=== PATIENT | male | born 1955 | race Caucasian/White ===

== ENCOUNTER 2025-04-02 11:57 | Outpatient (AMB) | payer MEDICARE, SELFPAY ==
--- NOTE | 2025-04-02 12:12 | A.OFFVIS_ITS ---
Intake Visit Reasons: Dementia lewy body type HPI Comments Details: History of Present Illness The patient is a 69-year-old male presenting to establish care with a local neurologist for management of his known diagnoses. He was diagnosed with Lewy body dementia with Parkinsonism approximately 2.5 to 3 years ago at [facility]. His initial symptoms, beginning around late 2021, included falling, loss of balance, and visual hallucinations of people. He voluntarily stopped dr aguilar after an episode of disorientation on the road. His initial evaluation with a [facility] physician, who was retiring, suggested ataxia before he was referred to [facility], where his diagnostic workup included a spinal tap and MRIs. 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 He also has a history of anxiety and what is described as major depressive disorder, for which he takes multiple medications. His is the primary historian and expresses concern about establishing local neurological care, as his specialist, Dr. Salmon at [facility], is seen annually and is not readily available for acute issues. She reports a past negative reaction to scopolamine, which was prescribed by a primary care provider for vomiting and subsequently discontinued after she researched its contraindications with Lewy body dementia. The patient has experienced recurrent episodes of severe vomiting, has a known hiatal hernia, and is scheduled for an upper endoscopy. Review of Systems Narrative Review of Systems - Neurological: Reports history of visual hallucinations, balance impairment, and falls. - Reports intermittent, unpredictable tremors. - Reports feeling dizzy, which he clarifies as unsteadiness. - Psychiatric: Reports history of anxiety and depression. - Gastrointestinal: Reports history of recurrent, severe vomiting episodes. - Reports history of hiatal hernia. Physical Exam Exam Exam: Physical Exam - Neurological: On observation, no resting or postural tremor was noted. - Patient appears unsteady. Mental Status Exam - Thought Content: Reports a history of visual hallucinations. - Mood: Reports a history of depression and anxiety. - Cognition: History of an episode of disorientation while driving. Neuro Other: Mental Status: He is alert and awake with normal spontaneity of speech fluency comprehension and flat affect. Cranial Nerves: CN II: Visual cervantes full to confrontation, visual acuity intact. CN III, IV, : Pupils equal, round, reactive to light and accommodation. Extraocular movements are normal. CN V: Facial sensation is normal. CN VII: Facial movements symmetrical. CN VIII: Hearing intact to bedside conversation is normal. CN IX, X: Palate elevates symmetrically. CN XI: Shoulder shrug and head turn symmetrical. CN XII: Tongue midline without atrophy or fasciculations. Motor: Bulk and tone normal in all extremities. No significant muscle weakness in arms and legs. No drift. Reflexes: Deep tendon reflexes are trace to absent. Plantars are flexor. Coordination: [id number] is okay. Gait and Station: Mildly cautious. Extrapyramidal: Full facial expressions and blinking. No rigidity. Movements are appropriate with no tremor or abnormality. Speech: Normal; no dysarthria or tremor. Assessment & Plan Assessment & Plan (1) Dementia with Lewy bodies: Code(s): G31.83 - Neurocognitive disorder with Lewy bodies; F02.80 - Dementia in other diseases classified elsewhere, unspecified severity, without behavioral disturbance, psychotic disturbance, mood disturbance, and anxiety Category: Medical Qualifiers: Dementia behavioral or psychological symptom: without behavioral, psychotic, or mood disturbance or anxiety Dementia severity: moderate Qualified Code(s): G31.83 - Neurocognitive disorder with Lewy bodies; F02.B0 - Dementia in other diseases classified elsewhere, moderate, without behavioral disturbance, psychotic disturbance, mood disturbance, and anxiety Plan Plan Patient was informed and verbally consented to the use of an ambient scribe for clinic note documentation during this visit. 1. Dementia With Lewy Bodies And Parkinsonism The diagnosis is considered well-established given the extensive workup at an a [facility]. Management is symptomatic, as there is no specific treatment for the condition. The patient is noted to be sensitive to medications. Trihexyphenidyl 2 mg twice daily is a surprisingly high dose, especially given its potential for cognitive side effects and the patient's lack of significant tremor; a trial reduction to 1 mg twice daily is recommended to find the minimum effective dose. Meclizine is not indicated for the patient's unsteadiness and should be reserved for true vertigo or vomiting. Donepezil will be continued at its current dose as it is being tolerated. A request was made to obtain copies of prior brain MRI scans and other test results from [facility]. Follow-up is scheduled for 3 months. 2. Major Depressive Disorder The patient has a long-standing history of depression and anxiety, managed by a psychiatrist with multiple medications, including antidepressants, a mood stabilizer (lamotrigine), and an antipsychotic (Rexulti), which suggests significant severity. He also takes a high dose of alprazolam (2 mg daily), which can contribute to cognitive impairment. No changes will be made to his psychiatric medication regimen at this time, and it was advised that antidepressants should not be stopped abruptly. 3. Nausea And Vomiting The patient experiences recurrent, severe episodes of vomiting which require further investigation. Given his history of a hiatal hernia, he is scheduled to undergo an upper endoscopy to evaluate the cause. Discussion Notes I explained to the patient and his that the diagnosis of Lewy body dementia is primarily clinical and that management is symptomatic. We reviewed his complex medication list, noting that patients with his condition are often sensitive to medications. I expressed surprise at the high dose of trihexyphenidyl (Artane) he is taking, as it primarily treats tremor, which is not a prominent symptom for him, and carries a high risk of side effects like confusion and forgetfulness in his age group. I recommended we conduct a safe experiment by reducing the dose from 2 mg twice daily to 1 mg twice daily and to assess his response after a week. I also clarified that meclizine should be used for vertigo or vomiting, not for his feeling of unsteadiness. I advised against abruptly stopping his antidepressants. I requested they obtain a CD of his brain MRI and copies of his test results from [facility] for my records. I provided anticipatory guidance regarding seeking emergency care, noting that most physicians are now aware of Lewy body dementia, and a follow-up appointment was scheduled in three months. Patient Instructions - Please try reducing your trihexyphenidyl (Artane) dose. - Instead of taking a 2 mg pill twice a day, cut the pill in half and take one- half (1 mg) twice a day. - Please leave a message with our office in one week to report how you are doing on the lower medication dose. - Only use meclizine if you feel severe dizziness (like the room is spinning) or if you are vomiting. - It is not the right medicine for feeling unsteady on your feet. - Do not suddenly stop taking your medications for depression and mood. - When you go to your next appointment at [facility], please ask for a copy of your brain MRI on a CD and copies of your other test results for our records. - You can find more information about Dementia with Lewy Bodies on the National Institutes of Health (NIH) website. - Your next follow-up appointment in this office is in three months. Coding Level of Care Code New Pt Level 5 (06374) Diagnoses Moderate Lewy body dementia without behavioral disturbance, psychotic disturbance, mood disturbance, or anxiety G31.83; F02.B0 Dementia behavioral or psychological symptom: without behavioral, psychotic, or mood disturbance or anxiety Dementia severity: moderate Time Spent (min) 65
== END 2025-04-02 12:49 | disposition home or self-care (01) ==
PROVIDERS: Visit Provider Psychiatry & Neurology Neurology
DX: G31.83 Neurocognitive disorder with Lewy bodies (principal); F02.B0 Dementia in other diseases classified elsewhere, moderate, without behavioral disturbance, psychotic disturbance, mood disturbance, and anxiety
CPT/HCPCS: 99205

== ENCOUNTER → 2025-04-02 11:57 | Outpatient (BNVA) | payer MEDICARE, SELFPAY | PROVIDERS: Visit Provider Psychiatry & Neurology Neurology | DX: G31.83 Neurocognitive disorder with Lewy bodies (principal); F02.B0 Dementia in other diseases classified elsewhere, moderate, without behavioral disturbance, psychotic disturbance, mood disturbance, and anxiety | CPT/HCPCS: 99202 ==